=== PATIENT | male | born 1950 | race Caucasian/White ===

== ENCOUNTER → 2019-05-07 | Outpatient (CLI) | payer MEDICARE ==
[~2019-05-07] MED LIST: ALBU90OI INH; DIPH50 PO; METPRE4DP PO; Pepcid20 MG PO; Prednisone20 MG PO
[2019-05-07 13:59] LABS: Anion Gap 6 mmol/L (6-16); Blood Urea Nitrogen 11 mg/dL (8-24); Bun/Creatinine Ratio 15.3 (12.0-20.0); CO2, Blood 31 mmol/L (21-32); Calcium, Blood 8.7 mg/dL (8.5-10.1); Chloride, Blood 105 mmol/L (98-108); Creatinine, Blood 0.72 mg/dL (0.60-1.20); Glomerular Filtration Rate >60 (60-); Glucose, Blood 94 mg/dL (70-99); Potassium, Blood 4.3 mmol/L (3.5-5.5); Sodium, Blood 142 mmol/L (136-145)
== END | disposition home or self-care (01) ==
LOC: LAB SHORT 13:52 → LAB EV 13:52
PROVIDERS: Physician Assistant Surgical
DX: I10 Essential (primary) hypertension (principal)
CPT/HCPCS: 80048

== ENCOUNTER 2019-08-23 02:43 | Emergency (ER) | payer MEDICARE ==
[~2019-08-23] VITALS: Ht 172.7 cm; Wt 79.4 kg
[2019-08-23] MEDS ORDERED: Lisinopril2.5 MG (02:55)
[2019-08-23] MEDS ORDERED: LEVSOD137 (02:56)
[2019-08-23] MEDS ORDERED: AMIT10 (02:56)
[2019-08-23] MEDS ORDERED: CHLO25B (02:56)
[2019-08-23 03:06] LABS: BASOPHILS ABSOLUTE AUTO 0.07 K/mm3 (0.00-0.23); BASOPHILS PERCENT AUTO 1 % (0-2); EOSINOPHILS ABSOLUTE AUTO 0.46 K/mm3 (0.00-0.68); EOSINOPHILS PERCENT AUTO 6 % (0-6); Hematocrit 42.6 % (37.0-53.0); IMMATURE GRAN ABSOLUTE AUTO 0.01 K/mm3 (0.00-0.10); IMMATURE GRAN PERCENT AUTO 0 % (0-1); LYMPHOCYTES ABSOLUTE AUTO 2.83 K/mm3 (0.84-5.20); LYMPHOCYTES PERCENT AUTO 39 % (21-46); MONOCYTES ABSOLUTE AUTO 0.85 K/mm3 (0.16-1.47); MONOCYTES PERCENT AUTO 12 % (4-13); Mean Corpuscular HGB 32.8 pg (26.0-34.0); Mean Corpuscular HGB Conc 32.9 g/dL (31.5-36.5); Mean Corpuscular Volume 100 fL (80-100); NEUTROPHILS ABSOLUTE AUTO 3.03 K/mm3 (1.96-9.15); NEUTROPHILS PERCENT AUTO 42 % (41-73); Platelet Count 247 K/mm3 (150-400); RDW Coefficient Variation 12.5 % (11.7-14.2); RDW Standard Deviation 45.5 fL (35.1-46.3); Red Blood Cell Count 4.27 M/mm3 (4.30-5.90); White Blood Cell Count 7.25 K/mm3 (4.00-11.30)
[2019-08-23 03:24] LABS: Alanine Aminotransfer (ALT/SGP 25 U/L (12-78); Albumin/Globulin Ratio 0.8 (0.8-1.8); Alk Phos 76 U/L (50-136); Anion Gap 6 mmol/L (6-16); Aspartate Aminotrans (AST/SGOT 36 U/L (12-37); Bilirubin, Total 0.2 mg/dL (0.1-1.0); Blood Urea Nitrogen 8 mg/dL (8-24); Bun/Creatinine Ratio 10.5 (12.0-20.0); CO2, Blood 29 mmol/L (21-32); Calcium, Blood 8.4 mg/dL (8.5-10.1); Chloride, Blood 104 mmol/L (98-108); Creatinine, Blood 0.76 mg/dL (0.60-1.20); Ethanol (Alcohol), Blood, Med 98 mg/dL; Glomerular Filtration Rate >60 (60-); Glucose, Blood 101 mg/dL (70-99); Potassium, Blood 3.3 mmol/L (3.5-5.5); Salicylate <1.7 mg/dL (2.8-20.0); Sodium, Blood 139 mmol/L (136-145)
[2019-08-23 03:29] LABS: Acetaminophen, Random <2.0 ug/mL (10.0-30.0)
[2019-08-23 04:33] LABS: Source, Urine Clean Catch
[2019-08-23 04:40] LABS: Bilirubin, Urine Neg (Neg); Blood, Urine Neg (Neg); Glucose Qualitative, Urine Neg (Neg); Ketones, Urine Neg (Neg); Leukocyte Esterase, Urine Neg (Neg); Nitrite, Urine Neg (Neg); Protein, Urine Neg (Neg); Urobilinogen, Urine NORM (Normal)
[2019-08-23 04:43] LABS: Appearance, Urine Clear (Clear); Color, Urine Yellow (P-Yellow)
[2019-08-23 04:52] LABS: U Amphetamine Screen Not Detected; U Barbituate Screen Not Detected; U Benzodiazapine Screen Not Detected; U Buprenorphine Screen Not Detected; U Cannabinoids Screen Not Detected; U Cocaine Screen Not Detected; U Methadone Screen Not Detected; U Methamphetamine Screen Not Detected; U Opiates Screen Not Detected; U Oxycodone Screen Not Detected; U Phencyclidine Screen Not Detected; U Propoxyphene Screen Not Detected
== END 2019-08-23 05:04 | disposition home or self-care (01) ==
LOC: ER 02:43
PROVIDERS: Emergency Medicine
DX: S09.90XA Unspecified injury of head, initial encounter (principal); F10.129 Alcohol abuse with intoxication, unspecified; F17.210 Nicotine dependence, cigarettes, uncomplicated; Z79.899 Other long term (current) drug therapy; Y90.0 Blood alcohol level of less than 20 mg/100 ml; W19.XXXA Unspecified fall, initial encounter
CPT/HCPCS: 70450; 80053; 81003; 85025; 93005; 93010; 99284-25; G0480

== ENCOUNTER 2020-05-27 14:37 | Inpatient (IN) | payer MEDICARE ==
[~2020-05-27] VITALS: Ht 175.3 cm; Wt 86.4 kg
[~2020-05-27 14:37] MED LIST changes: +AMIT10; +CHLO25B; +LEVSOD137; +Lisinopril2.5 MG
[2020-05-27 15:17] LABS: BASOPHILS ABSOLUTE AUTO 0.04 K/mm3 (0.00-0.23); BASOPHILS PERCENT AUTO 1 % (0-2); EOSINOPHILS ABSOLUTE AUTO 0.05 K/mm3 (0.00-0.68); EOSINOPHILS PERCENT AUTO 1 % (0-6); Hematocrit 36.5 % (37.0-53.0); Hemoglobin 13.2 g/dL (13.5-17.5); IMMATURE GRAN ABSOLUTE AUTO 0.03 K/mm3 (0.00-0.10); IMMATURE GRAN PERCENT AUTO 0 % (0-1); LYMPHOCYTES ABSOLUTE AUTO 1.74 K/mm3 (0.84-5.20); LYMPHOCYTES PERCENT AUTO 25 % (21-46); MONOCYTES PERCENT AUTO 12 % (4-13); Mean Corpuscular HGB 33.8 pg (26.0-34.0); Mean Corpuscular HGB Conc 36.2 g/dL (31.5-36.5); Mean Corpuscular Volume 93 fL (80-100); Mean Platelet Volume 8.8 fL (9.1-12.4); NEUTROPHILS ABSOLUTE AUTO 4.25 K/mm3 (1.96-9.15); NEUTROPHILS PERCENT AUTO 62 % (41-73); Platelet Count 148 K/mm3 (150-400); RDW Coefficient Variation 11.5 % (11.7-14.2); RDW Standard Deviation 39.4 fL (35.1-46.3); Red Blood Cell Count 3.91 M/mm3 (4.30-5.90); White Blood Cell Count 6.91 K/mm3 (4.00-11.30)
[2020-05-27 15:38] LABS: Alanine Aminotransfer (ALT/SGP 127 U/L (12-78); Albumin, Blood 2.9 g/dL (3.4-5.0); Albumin/Globulin Ratio 0.7 (0.8-1.8); Alk Phos 127 U/L (50-136); Anion Gap 9 mmol/L (6-16); Aspartate Aminotrans (AST/SGOT 316 U/L (12-37); Bilirubin, Total 1.4 mg/dL (0.1-1.0); Blood Urea Nitrogen 5 mg/dL (8-24); Bun/Creatinine Ratio 7.8 (12.0-20.0); CO2, Blood 35 mmol/L (21-32); Chloride, Blood 84 mmol/L (98-108); Creatinine, Blood 0.64 mg/dL (0.60-1.20); Globulin, Blood 3.9 g/dL (2.2-4.0); Glomerular Filtration Rate >60 (60-); Glucose, Blood 134 mg/dL (70-99); Potassium, Blood 2.6 mmol/L (3.5-5.5); Sodium, Blood 128 mmol/L (136-145); Total Protein, Blood 6.8 g/dL (6.4-8.2); Troponin I 0.085 ng/mL (0.000-0.040)
[2020-05-27 15:39] LABS: Salicylate <1.7 mg/dL (2.8-20.0)
[2020-05-27 15:40] LABS: Acetaminophen, Random <2.0 ug/mL (10.0-30.0); Ethanol (Alcohol), Blood, Med 328 mg/dL
[2020-05-27] MEDS ORDERED: TIOT18 INH (18:50)
[2020-05-27] MEDS ORDERED: LISI20 PO (18:50)
[2020-05-27] MEDS ORDERED: SYNTHROID88 MCG PO (18:50)
[2020-05-27] MEDS ORDERED: CHLO25B PO (18:50)
[2020-05-27 20:21] LABS: Source, Urine Clean Catch
[2020-05-27 20:24] LABS: Appearance, Urine Clear (Clear); Bilirubin, Urine Neg (Neg); Blood, Urine 1+ (Neg); Color, Urine Yellow (P-Yellow); Glucose Qualitative, Urine Neg (Neg); Ketones, Urine 1+ (Neg); Leukocyte Esterase, Urine Neg (Neg); Nitrite, Urine Neg (Neg); Protein, Urine Neg (Neg); Specific Gravity, Urine 1.005 (1.003-1.022); Urobilinogen, Urine NORM (Normal)
[2020-05-27 20:34] LABS: U Amphetamine Screen Not Detected; U Barbituate Screen Not Detected; U Benzodiazapine Screen Not Detected; U Buprenorphine Screen Not Detected; U Cannabinoids Screen Not Detected; U Cocaine Screen Not Detected; U Methadone Screen Not Detected; U Methamphetamine Screen Not Detected; U Opiates Screen Not Detected; U Oxycodone Screen Not Detected; U Phencyclidine Screen Not Detected; U Propoxyphene Screen Not Detected
[2020-05-27 20:49] LABS: Bacteria Not Seen /hpf; Red Blood Cells, Urine Rare /hpf (0-2); Squamous Epithelial Cells Not Seen /hpf (Few); White Blood Cells, Urine Rare /hpf (0-5)
--- NOTE | 2020-05-27 22:16 | NUR ---
2210 PT ADMITTED TO ROOM 328 PER CART FROM ER; REPORT RECEIVED FROM TAVO RN, ER NURSE; PT ALERT AND ORIENTED X 4; COOPERATIVE.
[2020-05-27 23:54] LABS: Troponin I 0.091 ng/mL (0.000-0.040)
[2020-05-28 00:07] LABS: Creatine Kinase MB Index 2.3 (0.0-4.0)
--- NOTE | 2020-05-28 03:43 | NUR ---
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
[2020-05-28 07:36] LABS: BASOPHILS ABSOLUTE AUTO 0.03 K/mm3 (0.00-0.23); BASOPHILS PERCENT AUTO 0 % (0-2); EOSINOPHILS ABSOLUTE AUTO 0.01 K/mm3 (0.00-0.68); EOSINOPHILS PERCENT AUTO 0 % (0-6); Hematocrit 34.4 % (37.0-53.0); Hemoglobin 12.3 g/dL (13.5-17.5); IMMATURE GRAN ABSOLUTE AUTO 0.03 K/mm3 (0.00-0.10); IMMATURE GRAN PERCENT AUTO 0 % (0-1); LYMPHOCYTES ABSOLUTE AUTO 1.06 K/mm3 (0.84-5.20); LYMPHOCYTES PERCENT AUTO 11 % (21-46); MONOCYTES ABSOLUTE AUTO 0.78 K/mm3 (0.16-1.47); MONOCYTES PERCENT AUTO 8 % (4-13); Mean Corpuscular HGB 34.5 pg (26.0-34.0); Mean Corpuscular HGB Conc 35.8 g/dL (31.5-36.5); Mean Corpuscular Volume 96 fL (80-100); Mean Platelet Volume 8.9 fL (9.1-12.4); NEUTROPHILS ABSOLUTE AUTO 7.91 K/mm3 (1.96-9.15); NEUTROPHILS PERCENT AUTO 81 % (41-73); Platelet Count 128 K/mm3 (150-400); RDW Coefficient Variation 11.7 % (11.7-14.2); RDW Standard Deviation 41.1 fL (35.1-46.3); Red Blood Cell Count 3.57 M/mm3 (4.30-5.90); White Blood Cell Count 9.82 K/mm3 (4.00-11.30)
[2020-05-28 07:55] LABS: Alanine Aminotransfer (ALT/SGP 111 U/L (12-78); Albumin, Blood 2.7 g/dL (3.4-5.0); Albumin/Globulin Ratio 0.8 (0.8-1.8); Alk Phos 123 U/L (50-136); Anion Gap 8 mmol/L (6-16); Aspartate Aminotrans (AST/SGOT 276 U/L (12-37); Bilirubin, Total 2.2 mg/dL (0.1-1.0); Blood Urea Nitrogen 6 mg/dL (8-24); Bun/Creatinine Ratio 9.2 (12.0-20.0); CO2, Blood 31 mmol/L (21-32); CPK Creatine Kinase 295 U/L (39-308); Calcium, Blood 7.7 mg/dL (8.5-10.1); Chloride, Blood 91 mmol/L (98-108); Creatinine, Blood 0.65 mg/dL (0.60-1.20); Globulin, Blood 3.5 g/dL (2.2-4.0); Glomerular Filtration Rate >60 (60-); Glucose, Blood 142 mg/dL (70-99); Potassium, Blood 3.2 mmol/L (3.5-5.5); Sodium, Blood 130 mmol/L (136-145); Total Protein, Blood 6.2 g/dL (6.4-8.2); Troponin I 0.087 ng/mL (0.000-0.040)
--- NOTE | 2020-05-28 10:17 | NUR ---
Echocardiogram completed.
--- NOTE | 2020-05-28 12:33 | NUR ---
L KNEE PAIN PT C/O L KNEE PAIN AFTER TOILETING EARLIER IN SHIFT. CALLED DR. CONTRERAS ABOUT PT PAIN LEVEL. PT STATES 10/10 LEVEL. ORDERED IBUPROPHEN TO START FOR PAIN MANAGEMENT. MED ADMINISTERED. WILL CONTINUE TO MONITOR.
--- NOTE | 2020-05-28 13:02 | NUR ---
L KNEE PAIN PT CONTINUES TO C/O L KNEE PAIN. DR. MORRISON NOTIFIED THAT IBUPROPHEN ALREADY HAS BEEN GIVEN. ORDERED XR OF L KNEE. AND TO APPLY ICE TO AREA. WILL CONTINUE TO MONITOR.
--- NOTE | 2020-05-28 17:56 | NUR ---
SHIFT SUMMARY PT HAD XR OF L KNEE COMPLETED TODAY DUE TO INCREASED PAIN T/O SHIFT. OXYCODONE STARTED AND LIDOCAINE PATCHES APPLIED TO KNEE WITH LITTLE RELIEF. L KNEE ELEVATED ON PILLOWS. TREMORS IMPROVED TREMENDOUSLY FROM THIS AM. LIBRIUM GIVEN ONCE THIS SHIFT. NO OTHER CHANGES IN ASSESSMENT AT THIS TIME. VS REVIEWED. WILL CONTINUE TO MONITOR UNTIL TURNOVER IS COMPLETE
--- NOTE | 2020-05-28 19:15 | NUR ---
ASSUMED CARE RECEIVED REPORT FROM VERONICA RUBY. ASSUMED CARE OF PT. RESTING COMFORTABLY, NO S/S ACUTE DISTRESS NOTED, RESPS E/U. REPORTING LT KNEE PAIN /, UNRELIEVED BY ICE OR HEAT. WILL MEDICATE ORDERED PER EMAR. PT DENIES FURTHER NEEDS AT THIS TIME. CALL LIGHT, POSSESSIONS IN REACH, BED IN LOW POSITION WITH ALARMS ON. WCTM.
--- NOTE | 2020-05-29 05:23 | NUR ---
THIS RN IN ROOM ADMINISTERING 0600 MEDS. PT HAD VISIBLE HICCUPS AND TREMORS, APPEARED INCREASINGLY ANXIOUS. MEDICATED PER EMAR. CONTINUE TO MONITOR.
[2020-05-29 05:48] LABS: BASOPHILS ABSOLUTE AUTO 0.04 K/mm3 (0.00-0.23); BASOPHILS PERCENT AUTO 1 % (0-2); EOSINOPHILS ABSOLUTE AUTO 0.03 K/mm3 (0.00-0.68); EOSINOPHILS PERCENT AUTO 0 % (0-6); Hematocrit 35.2 % (37.0-53.0); Hemoglobin 11.9 g/dL (13.5-17.5); IMMATURE GRAN ABSOLUTE AUTO 0.05 K/mm3 (0.00-0.10); IMMATURE GRAN PERCENT AUTO 1 % (0-1); LYMPHOCYTES ABSOLUTE AUTO 1.06 K/mm3 (0.84-5.20); LYMPHOCYTES PERCENT AUTO 13 % (21-46); MONOCYTES ABSOLUTE AUTO 0.64 K/mm3 (0.16-1.47); MONOCYTES PERCENT AUTO 8 % (4-13); Mean Corpuscular HGB 33.4 pg (26.0-34.0); Mean Corpuscular HGB Conc 33.8 g/dL (31.5-36.5); Mean Corpuscular Volume 99 fL (80-100); Mean Platelet Volume 9.5 fL (9.1-12.4); NEUTROPHILS ABSOLUTE AUTO 6.16 K/mm3 (1.96-9.15); NEUTROPHILS PERCENT AUTO 77 % (41-73); Platelet Count 136 K/mm3 (150-400); RDW Coefficient Variation 11.8 % (11.7-14.2); RDW Standard Deviation 43.1 fL (35.1-46.3); Red Blood Cell Count 3.56 M/mm3 (4.30-5.90); White Blood Cell Count 7.98 K/mm3 (4.00-11.30)
[2020-05-29 06:41] LABS: Alanine Aminotransfer (ALT/SGP 84 U/L (12-78); Albumin, Blood 2.4 g/dL (3.4-5.0); Albumin/Globulin Ratio 0.7 (0.8-1.8); Alk Phos 107 U/L (50-136); Anion Gap 5 mmol/L (6-16); Aspartate Aminotrans (AST/SGOT 181 U/L (12-37); Bilirubin, Total 3.7 mg/dL (0.1-1.0); Blood Urea Nitrogen 8 mg/dL (8-24); Bun/Creatinine Ratio 13.5 (12.0-20.0); CO2, Blood 29 mmol/L (21-32); Calcium, Blood 7.6 mg/dL (8.5-10.1); Chloride, Blood 97 mmol/L (98-108); Creatinine, Blood 0.59 mg/dL (0.60-1.20); Globulin, Blood 3.5 g/dL (2.2-4.0); Glomerular Filtration Rate >60 (60-); Glucose, Blood 109 mg/dL (70-99); Magnesium, Blood 1.8 mg/dL (1.6-2.4); Potassium, Blood 4.1 mmol/L (3.5-5.5); Sodium, Blood 131 mmol/L (136-145); Total Protein, Blood 5.9 g/dL (6.4-8.2)
--- NOTE | 2020-05-29 07:20 | NUR ---
SHIFT SUMMARY PT RESTING COMFORTABLY, NO S/S ACUTE DISTRESS NOTED, HICCUPS AND TREMORS IMPROVED, CIWAS STABLE. PT REPORTS IMPROVED LT KNEE PAIN THIS AM, NO C/O DISCOMFORT AT THIS TIME. VS REVIEWED, WNL. PT SLEPT ON AND OFF T/O NIGHT. DENIES NEEDS AT THIS TIME. CALL LIGHT, POSSESSIONS IN REACH, BED IN LOW POSITION WITH ALARMS ON. REPORT GIVEN TO VERONICA DONIS.
--- NOTE | 2020-05-29 09:45 | NUR ---
PT A/O PLEASANT QUIET TALKATIVE. DENIES PAIN AT THIS TIME. WHEN STANDS STATES LEFT KNEE WAS HURTING, NOT AT THIS MOMENT. DENIES S/S ETOH WITHDRAWL. D/C CWYohana. ONLY LIGHT BARELY NOTICABLE TREMORS. DOES REMAIN QUITE WEAK, UNABLE TO WALK AT THIS TIME. 2 MAX ASST TO BSC. H/R REG, NO MURMER NOTED. PER TELE TACH W/ PVC'S AT 106. LUNGS CLEAR, RESP EASY, UNLABORED. ON R.A. BT X4, LAST BM STATES YEST. LOOSE BUT NOT DIARRHEA. VOIDS URINAL. BED IN LOW POSITION, ACLL LITE IN REACH, BED ALARM ON FOR SAFETY
[2020-05-29] MEDS ORDERED: LIDOCAINE1 EAC1 TOP (14:48)
[2020-05-29] MEDS ORDERED: TRAZ50 PO (14:48)
[2020-05-29] MEDS ORDERED: MELA3 PO (14:48)
--- NOTE | 2020-05-29 15:10 | NUR ---
1510 TELE CALLED. H/R JUST JUMPED TO 200. CHECKED PT. HE RESTING EYES CLOSED IN BED. WOKE HIM. ASKED IF HE FELT OKAY. STATES FEELS OKAY, PLANNING A NAP AT THIS TIME. PULSES VERY FAINT IN EITHER ARM. RAPID, BUT CANNOT DISCERN RATES. NEW V/S 105/66. PER TELE RATE 210. CALLED CHARGE TO SEE PT ALSO. CALLED DR DE LA TORRE. ORDERS STAT EKG AND 5 MG LOPRESSOR. IV X1. PT STATES FEELS OKAY, BUT WEAK IS ALL.
--- NOTE | 2020-05-29 16:52 | NUR ---
1545 EKG READ BACK TO DR BARLOW. GAVE LOPRESSOR. NEW BP 83/48. H/R DROPPED TO 180-190. CALLED DR CONTRERAS, AND GAGANDEEP RELATIONS MANAGER. MOVING TO [facility]. REPORT CALLED TO PENNY DEMARCO.
--- NOTE | 2020-05-29 18:21 | NUR ---
PATIENT ARRIVED TO PCU HAVING CONVERTED BACK TO SINUES RHYTHYM, PATIENT DENIED CHEST PAIN/PRESSURE, BP 119/88 ON ARRIVAL. AT ROUGHLY 1700 PATIENT CONVERTED BACK TO SVT IN THE 200S, PATIENT DENIES CHEST PAIN, NOTED SOB ON OBSERVATION, EKG DONE, DR. CONTRERAS NOTIFIED ORDERS FOR PO METOPROLOL GIVEN. PATIENT MAINTAINING IN 200S, RUTHIE MARTIN CALLED DR. CONTRERAS AND RECIEVED ORDERS FOR IV METOPROLOL PUSH. PUSH GIVEN PER EMAR, PATIENT HR DECREASED TO 180S. BP MONITORED, NO HYPOTENSION NOTED. PATIENT ENCOURAGED TO COUGH, CONVERTED WITH BIG COUGH TO SINUS RHYTHYM AND NOW IN SR 80S-90S. DISCHARGE DELAYED, PLAN IS FOR PATIENT TO STAY IN PCU OVERNIGHT WITH CARDIOLOGY TO SEE IN MORNING.
--- NOTE | 2020-05-29 19:54 | NUR ---
ASSUMED CARE RECEIVED BEDSIDE REPORT FROM VERONICA FRANCIS; PT A&O X 3; WATCHING TV; DENIES CHEST PAIN; VSS; NO DISTRESS NOTED; CALL LIGHT IN REACH; BED IN LOWEST POSITION.
--- NOTE | 2020-05-29 20:27 | NUR ---
UPDATE NOTIFIED BY IMAGING SYSTEM ADMINISTRATOR OF PT IN SVT W/ HR OF 180-190; PT ASSYMPTOMATIC AND STATED HE "FEEL FINE"; SUSPENDER CUTTER TO ROOM TO ASSIST PT W/ BLOWING ON SYRINGE W/ NO CHANGE TO RATE; NOTIFIED; NEW ORDER GIVEN FOR ADENOSINE 6MG FOLLOWED BY 12 IF NO CHANGE IN RATE/RHYTHM; ADMINISTER PO METOPROLO TO FURTHER ASSESS FOR IMPROVEMENT; RN IN ROOM TO MONITOR PT
--- NOTE | 2020-05-29 21:10 | NUR ---
UPDATE CRASH CART IN ROOM AND PT CONNECTED; CLINICAL ACADEMIC ALLERGIST NOTIFIED; FIRE PREVENTION ENGINEER GABRIEL BLUNT RN AND VERONICA FERRARA AT BEDSIDE TO ASSIST; 6MG ADENOSINE PUSH GIVEN; DURATION OF 5 MINUTES WAITED, NO CHANGE IN CONDITION; 12MG ADENOSINE PUSH GIVEN; PT CONVERTED TO NSR W/ HR 80'S -90'S; PT STATES THE MEDICINE "DOES NOT SEEM TO CHANGE ANYTHING", DENIES CHEST PAIN, OR SYMPTOMS; CONITNUE TO MONITOR CLOSELY;
--- NOTE | 2020-05-30 06:11 | NUR ---
SHIFT SUMMARY PT A&O X 2-3; DOES NOT TRACK CONVERSATION AT TIMES; VSS; NSR NOTED ON TELE REMAINDER OF SHIFT W/ HR 80-90'S; O2 SATS >93 ON RA; ASSISTANCE NEEDED W/ URINAL; INCONTINENT AT TIMES W/ ATTENDS IN PLACE; PT SLEPT ON AND OFF IN BETWEEN INTERVENTIONS; NO DISTRESS NOTED; DENIES NEEDS AT THIS TIME; CALL LIGHT IN REACH; BED IN LOWEST POSITION; WILL CONTINUE TO MONITOR CLOSELY UNTIL HAND OFF TO DAY SHIFT RN.
[2020-05-30 07:23] LABS: BASOPHILS ABSOLUTE AUTO 0.03 K/mm3 (0.00-0.23); BASOPHILS PERCENT AUTO 0 % (0-2); EOSINOPHILS ABSOLUTE AUTO 0.08 K/mm3 (0.00-0.68); EOSINOPHILS PERCENT AUTO 1 % (0-6); Hematocrit 32.7 % (37.0-53.0); Hemoglobin 11.1 g/dL (13.5-17.5); IMMATURE GRAN ABSOLUTE AUTO 0.08 K/mm3 (0.00-0.10); IMMATURE GRAN PERCENT AUTO 1 % (0-1); LYMPHOCYTES ABSOLUTE AUTO 1.67 K/mm3 (0.84-5.20); LYMPHOCYTES PERCENT AUTO 18 % (21-46); MONOCYTES ABSOLUTE AUTO 0.89 K/mm3 (0.16-1.47); MONOCYTES PERCENT AUTO 10 % (4-13); Mean Corpuscular HGB 34.6 pg (26.0-34.0); Mean Corpuscular HGB Conc 33.9 g/dL (31.5-36.5); Mean Corpuscular Volume 102 fL (80-100); Mean Platelet Volume 9.9 fL (9.1-12.4); NEUTROPHILS ABSOLUTE AUTO 6.53 K/mm3 (1.96-9.15); NEUTROPHILS PERCENT AUTO 70 % (41-73); Platelet Count 158 K/mm3 (150-400); RDW Coefficient Variation 12.3 % (11.7-14.2); RDW Standard Deviation 46.4 fL (35.1-46.3); Red Blood Cell Count 3.21 M/mm3 (4.30-5.90); White Blood Cell Count 9.28 K/mm3 (4.00-11.30)
[2020-05-30 07:39] LABS: Alanine Aminotransfer (ALT/SGP 61 U/L (12-78); Albumin, Blood 2.2 g/dL (3.4-5.0); Albumin/Globulin Ratio 0.6 (0.8-1.8); Alk Phos 92 U/L (50-136); Anion Gap 5 mmol/L (6-16); Aspartate Aminotrans (AST/SGOT 108 U/L (12-37); Bilirubin, Direct 1.5 mg/dL (0.0-0.3); Bilirubin, Indirect 1.2 mg/dL (0.1-0.7); Bilirubin, Total 2.7 mg/dL (0.1-1.0); Blood Urea Nitrogen 15 mg/dL (8-24); Bun/Creatinine Ratio 19.5 (12.0-20.0); CO2, Blood 28 mmol/L (21-32); Calcium, Blood 7.7 mg/dL (8.5-10.1); Chloride, Blood 99 mmol/L (98-108); Creatinine, Blood 0.77 mg/dL (0.60-1.20); Globulin, Blood 3.6 g/dL (2.2-4.0); Glomerular Filtration Rate >60 (60-); Glucose, Blood 98 mg/dL (70-99); Potassium, Blood 4.1 mmol/L (3.5-5.5); Sodium, Blood 132 mmol/L (136-145); Total Protein, Blood 5.8 g/dL (6.4-8.2)
[2020-05-30 09:10] LABS: Magnesium, Blood 1.5 mg/dL (1.6-2.4); Troponin I 0.186 ng/mL (0.000-0.040)
--- NOTE | 2020-05-30 18:13 | NUR ---
THIS MORNING PATIENT WENT INTO SVT, ADENOSINE PUSH GIVEN PER EMAR, PATIENT CONVERTED BACK TO SINUS RHYTHYM AND MAINTAINED IN NSR REST OF SHIFT 80S-90S. PATIENT APPEARED SHORT OF BREATH DURING SVT, NO OTHER SYMPTOMS NOTED. PATIENT STANDBY ASSIST TO BEDSIDE, PATIENT WEAK AND REQUIRES ASSIST IN STANDING FOR TRANSFER. PATIENT SEEN BY CARDIOLOGY TODAY, LONG ACTING METOPROLOL STARTED. PATIENT ENDORSES POOR APPETITE, OTHERWISE NO COMPLAINTS. PATIENT'S VSS REST OF SHIFT, NO SIGNS OF ACUTE DISTRESS, ALERT AND ORIENTED, CONCRETE THINKING PRESENT, FOLLOWS COMMANDS.
--- NOTE | 2020-05-30 23:38 | NUR ---
PATIENT IS ALERT AND ORIENTED. COOPERATIVE WITH CARE. PATIENT HAS WOUND ON LEFT WRIST THAT HE STATES HAPPENED AT HOME, CHANGED DRESSING, WOUND APPEARS CLEAN AND IS NOW DRY. HEELS PLACED IN PROTECTIVE CUSHION. PATIENT CALLS APPROPRIATELY, USES URINAL. 02 SATS >90% ON RA, PATIENT DENIES SOB, AND HAS A DRY COUGH. VSS. CALL LIGHT IN REACH.
[2020-05-31 03:48] LABS: BASOPHILS ABSOLUTE AUTO 0.04 K/mm3 (0.00-0.23); BASOPHILS PERCENT AUTO 1 % (0-2); EOSINOPHILS ABSOLUTE AUTO 0.15 K/mm3 (0.00-0.68); EOSINOPHILS PERCENT AUTO 2 % (0-6); Hematocrit 31.1 % (37.0-53.0); Hemoglobin 10.6 g/dL (13.5-17.5); IMMATURE GRAN ABSOLUTE AUTO 0.13 K/mm3 (0.00-0.10); IMMATURE GRAN PERCENT AUTO 2 % (0-1); LYMPHOCYTES ABSOLUTE AUTO 1.52 K/mm3 (0.84-5.20); LYMPHOCYTES PERCENT AUTO 19 % (21-46); MONOCYTES ABSOLUTE AUTO 0.77 K/mm3 (0.16-1.47); MONOCYTES PERCENT AUTO 9 % (4-13); Mean Corpuscular HGB 34.8 pg (26.0-34.0); Mean Corpuscular HGB Conc 34.1 g/dL (31.5-36.5); Mean Corpuscular Volume 102 fL (80-100); Mean Platelet Volume 9.4 fL (9.1-12.4); NEUTROPHILS ABSOLUTE AUTO 5.61 K/mm3 (1.96-9.15); NEUTROPHILS PERCENT AUTO 68 % (41-73); Platelet Count 178 K/mm3 (150-400); RDW Coefficient Variation 12.4 % (11.7-14.2); RDW Standard Deviation 46.4 fL (35.1-46.3); Red Blood Cell Count 3.05 M/mm3 (4.30-5.90); White Blood Cell Count 8.22 K/mm3 (4.00-11.30)
[2020-05-31 04:15] LABS: Anion Gap 6 mmol/L (6-16); Blood Urea Nitrogen 18 mg/dL (8-24); Bun/Creatinine Ratio 25.4 (12.0-20.0); CO2, Blood 27 mmol/L (21-32); Calcium, Blood 7.9 mg/dL (8.5-10.1); Chloride, Blood 101 mmol/L (98-108); Creatinine, Blood 0.71 mg/dL (0.60-1.20); Glomerular Filtration Rate >60 (60-); Glucose, Blood 108 mg/dL (70-99); Magnesium, Blood 1.9 mg/dL (1.6-2.4); Potassium, Blood 3.6 mmol/L (3.5-5.5); Sodium, Blood 134 mmol/L (136-145)
[2020-05-31 07:10] LABS: HBSAG SCREEN Negative (Negative); HEP A AB, IGM Negative (Negative); HEP B CORE AB, IGM Negative (Negative); HEP C VIRUS AB >11.0 (0.0-0.9)
--- NOTE | 2020-05-31 07:37 | NUR ---
SUMMARY PATIENT SLEPT MOST THE NIGHT, OCCASIONAL WOKE UP AND WATCHED TV. USED URINAL APPROPRIATELY. VSS, NO ACUTE CHANGES. CALL LIGHT IN REACH.
--- NOTE | 2020-05-31 16:45 | NUR ---
PT SUMMARY: NO EPISODES OF SVT TODAY VITALS HRR REMAINED SINUS TACH'S UP TO 110'S WITH EXERTION, BP SYSTOLIC 120'S. SATS ABOVE 90% ON RA. AFEBRILE. PT WAS ABLE TO WORL WITH PT/OT TODAY STILL FEELING UNSTEADY AND WEAK, WAS ABLE TO AMBULATE TO THE BATHROOM AND BACK IN BED, PT ALSO C/O LEFT LEG PAIN AFTER AMBULATING WAS GIVEN OXYCODONE 5MG AND WAS EFFECTIVE. PT PLAN TO POSSIBLY DC TO REHAB, WAS WILLING TO QUIT ALCOHOL IF HE IS TO GET SOME HELP/REHAB. NO OTHER ISSUES COMPLAINED FOR THE SHIFT, FAMILY MEMBER IN THE ROOM TO VISIT REQUESTED AND WAS ABLE TO TALK TO DR PAGE REGARDING PT'S STATUS. PT DENIES ANY CHEST PAIN/DIZZINESS FOR THE SHIFT, IN BED OF THIS TIME RESTING, CALL LIGHTS IN REACH WILL MONITOR
--- NOTE | 2020-05-31 23:44 | NUR ---
PATIENT IS ALERT, ORIENTED, AND COOPERATIVE WITH CARE. PATIENT COMPLAINED OF LEFT ANKLE PAIN, SLIGHT BRUISING NOTED, ICE PACK APPLIED, WILL REASSES. REPOSITIONED, CHANGED PATIENT BRIEF, AND CHANGED PATIENTS BED SHEETS. PATIENT WENT INTO SVT 180s-190s @2140, SHAILA MARTIN HAD PATIENT BLOW INTO SYRINGE AND PATIENT CONVERTED BACK TO NSR @80s-90s. 02 SATS >90% ON RA. VS NOW STABLE. CALL LIGHT IN REACH.
[2020-06-01 03:31] LABS: BASOPHILS ABSOLUTE AUTO 0.07 K/mm3 (0.00-0.23); BASOPHILS PERCENT AUTO 1 % (0-2); EOSINOPHILS ABSOLUTE AUTO 0.19 K/mm3 (0.00-0.68); EOSINOPHILS PERCENT AUTO 2 % (0-6); Hematocrit 29.2 % (37.0-53.0); Hemoglobin 9.7 g/dL (13.5-17.5); IMMATURE GRAN PERCENT AUTO 2 % (0-1); LYMPHOCYTES ABSOLUTE AUTO 1.87 K/mm3 (0.84-5.20); LYMPHOCYTES PERCENT AUTO 21 % (21-46); MONOCYTES ABSOLUTE AUTO 1.12 K/mm3 (0.16-1.47); MONOCYTES PERCENT AUTO 12 % (4-13); Mean Corpuscular HGB 34.4 pg (26.0-34.0); Mean Corpuscular HGB Conc 33.2 g/dL (31.5-36.5); Mean Corpuscular Volume 104 fL (80-100); Mean Platelet Volume 9.3 fL (9.1-12.4); NEUTROPHILS ABSOLUTE AUTO 5.65 K/mm3 (1.96-9.15); NEUTROPHILS PERCENT AUTO 62 % (41-73); Platelet Count 195 K/mm3 (150-400); RDW Coefficient Variation 12.8 % (11.7-14.2); RDW Standard Deviation 46.6 fL (35.1-46.3); Red Blood Cell Count 2.82 M/mm3 (4.30-5.90)
[2020-06-01 03:49] LABS: Alanine Aminotransfer (ALT/SGP 53 U/L (12-78); Albumin, Blood 1.9 g/dL (3.4-5.0); Albumin/Globulin Ratio 0.5 (0.8-1.8); Alk Phos 78 U/L (50-136); Anion Gap 5 mmol/L (6-16); Aspartate Aminotrans (AST/SGOT 71 U/L (12-37); Bilirubin, Total 1.3 mg/dL (0.1-1.0); Blood Urea Nitrogen 25 mg/dL (8-24); Bun/Creatinine Ratio 36.3 (12.0-20.0); CO2, Blood 26 mmol/L (21-32); Chloride, Blood 101 mmol/L (98-108); Creatinine, Blood 0.69 mg/dL (0.60-1.20); Globulin, Blood 3.5 g/dL (2.2-4.0); Glomerular Filtration Rate >60 (60-); Glucose, Blood 109 mg/dL (70-99); Magnesium, Blood 1.7 mg/dL (1.6-2.4); Potassium, Blood 4.3 mmol/L (3.5-5.5); Sodium, Blood 132 mmol/L (136-145); Total Protein, Blood 5.4 g/dL (6.4-8.2)
--- NOTE | 2020-06-01 06:47 | NUR ---
SUMMARY PATIENT SLEPT MOST THE NIGHT. NO OTHER EPISODES OF SVT. PATIENT STATES HE IS COMFORTABLE. VSS, NO ACUTE CHANGES. BED IN LOWEST POSITION, CALL LIGHT IN REACH.
--- NOTE | 2020-06-01 09:24 | NUR ---
EFM provider in to see patient. Order given to scan bladder because pt reported difficulty voiding to provider. Bladder scan 50 mL.
--- NOTE | 2020-06-01 17:05 | NUR ---
SUMMARY Pt out of bed to chair two times today. Reluctant to get up to chair for dinner but agreeable after encouragement from staff and daughter in room. Pt A&O x 4. Answers questions. Follows commands. Verbalizes needs. Pleasant and cooperative with care. Pt requires moderate assist with transfers. Requires management of cords and lines as well as verbal cues. Lungs coarse in bases. No crackles noted since IV fluids started. Dry, nonproductive cough. SR per monitor. No events per telemetry. No changes to heart rate noted when pt used albuterol today. BP stable. Pt voids into urinal. Pt sitting up in chair at this time, visiting with daughter. No signs of alcohol withdrawal. Will continue to closely monitor until care handoff and bedside report with oncoming RN.
[2020-06-02 03:44] LABS: BASOPHILS ABSOLUTE AUTO 0.06 K/mm3 (0.00-0.23); BASOPHILS PERCENT AUTO 1 % (0-2); EOSINOPHILS ABSOLUTE AUTO 0.29 K/mm3 (0.00-0.68); EOSINOPHILS PERCENT AUTO 3 % (0-6); Hematocrit 27.6 % (37.0-53.0); IMMATURE GRAN ABSOLUTE AUTO 0.47 K/mm3 (0.00-0.10); IMMATURE GRAN PERCENT AUTO 6 % (0-1); LYMPHOCYTES ABSOLUTE AUTO 1.29 K/mm3 (0.84-5.20); LYMPHOCYTES PERCENT AUTO 15 % (21-46); MONOCYTES ABSOLUTE AUTO 1.13 K/mm3 (0.16-1.47); MONOCYTES PERCENT AUTO 13 % (4-13); Mean Corpuscular HGB 34.1 pg (26.0-34.0); Mean Corpuscular HGB Conc 32.6 g/dL (31.5-36.5); Mean Corpuscular Volume 105 fL (80-100); Mean Platelet Volume 9.3 fL (9.1-12.4); NEUTROPHILS ABSOLUTE AUTO 5.33 K/mm3 (1.96-9.15); NEUTROPHILS PERCENT AUTO 62 % (41-73); NRBC ABSOLUTE 0.02 K/mm3 (0.00-0.02); NRBC Auto 0.2 /100 WBC (0.0-0.2); Platelet Count 247 K/mm3 (150-400); RDW Coefficient Variation 13.2 % (11.7-14.2); RDW Standard Deviation 48.3 fL (35.1-46.3); Red Blood Cell Count 2.64 M/mm3 (4.30-5.90); White Blood Cell Count 8.57 K/mm3 (4.00-11.30)
[2020-06-02 04:05] LABS: Alanine Aminotransfer (ALT/SGP 55 U/L (12-78); Albumin/Globulin Ratio 0.6 (0.8-1.8); Alk Phos 70 U/L (50-136); Anion Gap 4 mmol/L (6-16); Aspartate Aminotrans (AST/SGOT 66 U/L (12-37); Bilirubin, Total 0.9 mg/dL (0.1-1.0); Blood Urea Nitrogen 22 mg/dL (8-24); Bun/Creatinine Ratio 31.8 (12.0-20.0); CO2, Blood 27 mmol/L (21-32); Calcium, Blood 8.3 mg/dL (8.5-10.1); Chloride, Blood 103 mmol/L (98-108); Creatinine, Blood 0.69 mg/dL (0.60-1.20); Globulin, Blood 3.4 g/dL (2.2-4.0); Glomerular Filtration Rate >60 (60-); Glucose, Blood 105 mg/dL (70-99); Magnesium, Blood 1.7 mg/dL (1.6-2.4); Potassium, Blood 4.8 mmol/L (3.5-5.5); Sodium, Blood 134 mmol/L (136-145); Total Protein, Blood 5.4 g/dL (6.4-8.2)
[2020-06-02 04:10] LABS: BAND PERCENT MAN 1 % (0-8); BASOPHILS PERCENT MAN 0 % (0-2); EOSINOPHILS ABSOLUTE MAN 0.08 K/mm3 (0.00-0.68); EOSINOPHILS PERCENT MAN 1 % (0-6); LYMPHOCYTES ABSOLUTE MAN 1.02 K/mm3 (0.84-5.20); LYMPHOCYTES PERCENT MAN 12 % (21-46); METAMYELOCYTE ABSOLUTE MAN 0.17 K/mm3 (0.00-0.00); METAMYELOCYTE PERCENT MAN 2 % (0-0); MONOCYTES ABSOLUTE MAN 0.51 K/mm3 (0.16-1.47); MONOCYTES PERCENT MAN 6 % (4-13); NEUTROPHILS ABSOLUTE MAN 6.77 K/mm3 (1.96-9.15); SEG NEUTROPHILS PERCENT MAN 78 % (41-73); TOTAL CELLS COUNTED 100
--- NOTE | 2020-06-02 04:54 | NUR ---
SHIFT SUMMARY PT CONTINUES TO BE AXO. IN SR. VSS. ON RA. HAS NOT HAD AN EPISODE OF SVT THIS SHIFT. LUNG SOUNDS IN BASES REMAIN COARSE. USING URINAL INDEPENDENTLY. BECOMES TEARY EYED WHEN DISCUSSIN ALCOHOL CESSATION. THIS RN PROVIDED EDUCATION IN THIS AREA. OTHERWISE, PT RESTING IN BED. SOME DIFFICULTY SLEEPING NOTED. WILL CONTINUE TO MONITOR UNTIL SHIFT CHANGE.
[2020-06-02 12:07] LABS: HCV LOG10 6.542 (.); HEPATITIS C QUANTITATION 3480000 IU/mL (.)
--- NOTE | 2020-06-02 17:43 | NUR ---
SHIFT SUMMARY PT A&Ox4; CALM. UNMOTIVATED TO ACTIVTY; PT UP TO CHIAR FOR BREAKFAST AND LUNCH, PT REFUSING TO GET TO CHAIR FOR DINNER. PT EDUCATED ON BENEFIT OF MOVEMENT AND ACTIVITY. PT REPORTS PAIN TO BACK; MEDICATED PER ORDERS. PT SOB WITH ACTIVTY; SPO2 >90% ON RA. PT DENIES NASUEA, DIZZINESS AND LIGHTHEADEDNESS. NO EVENTS NOTED FROM TELE. VSS. NO OTHER ACUTE CHANGES NOTED DURING SHIFT. WILL CONITNUE TO MONITOR UNITL REPORT GIVEN TO ONCOMING RN.
[2020-06-03 04:17] LABS: BASOPHILS ABSOLUTE AUTO 0.06 K/mm3 (0.00-0.23); BASOPHILS PERCENT AUTO 1 % (0-2); EOSINOPHILS ABSOLUTE AUTO 0.25 K/mm3 (0.00-0.68); EOSINOPHILS PERCENT AUTO 3 % (0-6); Hematocrit 27.7 % (37.0-53.0); Hemoglobin 9.1 g/dL (13.5-17.5); IMMATURE GRAN ABSOLUTE AUTO 0.37 K/mm3 (0.00-0.10); IMMATURE GRAN PERCENT AUTO 5 % (0-1); LYMPHOCYTES ABSOLUTE AUTO 1.32 K/mm3 (0.84-5.20); LYMPHOCYTES PERCENT AUTO 16 % (21-46); MONOCYTES ABSOLUTE AUTO 1.23 K/mm3 (0.16-1.47); MONOCYTES PERCENT AUTO 15 % (4-13); Mean Corpuscular HGB 34.6 pg (26.0-34.0); Mean Corpuscular HGB Conc 32.9 g/dL (31.5-36.5); Mean Corpuscular Volume 105 fL (80-100); Mean Platelet Volume 9.5 fL (9.1-12.4); NEUTROPHILS PERCENT AUTO 60 % (41-73); NRBC ABSOLUTE 0.02 K/mm3 (0.00-0.02); NRBC Auto 0.2 /100 WBC (0.0-0.2); Platelet Count 307 K/mm3 (150-400); RDW Coefficient Variation 13.7 % (11.7-14.2); RDW Standard Deviation 50.3 fL (35.1-46.3); Red Blood Cell Count 2.63 M/mm3 (4.30-5.90); White Blood Cell Count 8.13 K/mm3 (4.00-11.30)
[2020-06-03 04:37] LABS: Alanine Aminotransfer (ALT/SGP 60 U/L (12-78); Albumin, Blood 2.1 g/dL (3.4-5.0); Albumin/Globulin Ratio 0.6 (0.8-1.8); Alk Phos 74 U/L (50-136); Anion Gap 4 mmol/L (6-16); Aspartate Aminotrans (AST/SGOT 69 U/L (12-37); Bilirubin, Total 0.9 mg/dL (0.1-1.0); Blood Urea Nitrogen 15 mg/dL (8-24); Bun/Creatinine Ratio 21.6 (12.0-20.0); CO2, Blood 29 mmol/L (21-32); Calcium, Blood 8.6 mg/dL (8.5-10.1); Chloride, Blood 100 mmol/L (98-108); Globulin, Blood 3.7 g/dL (2.2-4.0); Glomerular Filtration Rate >60 (60-); Glucose, Blood 105 mg/dL (70-99); Potassium, Blood 4.8 mmol/L (3.5-5.5); Sodium, Blood 133 mmol/L (136-145); Total Protein, Blood 5.8 g/dL (6.4-8.2)
--- NOTE | 2020-06-03 05:57 | NUR ---
SHIFT SUMMARY PT RESTED WELL THROUGH NIGHT. ALERT AND ORIENTED. SATS >90% ON ROOM AIR. TELE NSR - NO SIGNS OF SVT. VOIDING TO URINAL - UOP >700ML. 1 BM. NO C/O PAIN. VSS. CALL LIGHT WITHIN REACH, BED IN LOWEST POSITION. WILL CONTINUE TO MONITOR.
[2020-06-03] MEDS ORDERED: PANT40 PO (13:27)
[2020-06-03] MEDS ORDERED: METO50ER PO (13:27)
[2020-06-03] MEDS ORDERED: TUMS500 MG PO (13:34)
== END 2020-06-03 15:53 | disposition home health service (06) | DRG 896 ==
LOC: ER 14:37 → MEDS 14:38 → ER 20:28 → MEDS 22:07 → PCU 05-28 18:24 → MEDS 05-28 19:33 → PCU 05-29 15:48 → ENPENDDIS 06-03 12:26 → PCU 06-03 15:53
PROVIDERS: Family Medicine; Internal Medicine; Physician Assistant; ADMIT Internal Medicine
DX: F10.231 Alcohol dependence with withdrawal delirium (principal); I21.A1 Myocardial infarction type 2; E87.2 Acidosis; I47.1 Supraventricular tachycardia; E44.0 Moderate protein-calorie malnutrition; F17.210 Nicotine dependence, cigarettes, uncomplicated; E87.6 Hypokalemia; E03.9 Hypothyroidism, unspecified; J44.9 Chronic obstructive pulmonary disease, unspecified; I10 Essential (primary) hypertension; E83.42 Hypomagnesemia; E86.0 Dehydration; F19.982 Other psychoactive substance use, unspecified with psychoactive substance-induced sleep disorder; M17.12 Unilateral primary osteoarthritis, left knee; B19.20 Unspecified viral hepatitis C without hepatic coma; F41.9 Anxiety disorder, unspecified; R29.6 Repeated falls; Y90.8 Blood alcohol level of 240 mg/100 ml or more
CPT/HCPCS: 36415; 71045; 73560-LT; 80048; 80053; 80074; 80076; 81001; 82550; 82553; 82607; 82746; 82947; 83735; 83880; 84443; 84484; 85025; 87522; 92960; 93005; 93010; 93306; 94640; 94760; 96374; 97110; 97116; 97161; 97165; 97530; 97535; 99285-25; A9270; A9270-GY; G0480; J0153; J1650; J2405; J3411; J3475; J3480; J7042

== ENCOUNTER 2020-06-12 09:27 | Emergency (ER) | payer MEDICARE ==
[~2020-06-12] VITALS: Ht 175.3 cm; Wt 76.7 kg
[~2020-06-12 09:27] MED LIST changes: +CHLO25B PO; +LIDOCAINE1 EAC1 TOP; +LISI20 PO; +MELA3 PO; +METO50ER PO; +PANT40 PO; +SYNTHROID88 MCG PO; +TIOT18 INH; +TRAZ50 PO; +TUMS500 MG PO
[2020-06-12 11:51] LABS: BASOPHILS ABSOLUTE AUTO 0.06 K/mm3 (0.00-0.23); BASOPHILS PERCENT AUTO 1 % (0-2); EOSINOPHILS ABSOLUTE AUTO 0.18 K/mm3 (0.00-0.68); EOSINOPHILS PERCENT AUTO 2 % (0-6); Hematocrit 32.1 % (37.0-53.0); Hemoglobin 10.1 g/dL (13.5-17.5); IMMATURE GRAN ABSOLUTE AUTO 0.06 K/mm3 (0.00-0.10); IMMATURE GRAN PERCENT AUTO 1 % (0-1); LYMPHOCYTES PERCENT AUTO 17 % (21-46); MONOCYTES PERCENT AUTO 9 % (4-13); Mean Corpuscular HGB 33.7 pg (26.0-34.0); Mean Corpuscular HGB Conc 31.5 g/dL (31.5-36.5); Mean Corpuscular Volume 107 fL (80-100); Mean Platelet Volume 8.9 fL (9.1-12.4); NEUTROPHILS ABSOLUTE AUTO 5.76 K/mm3 (1.96-9.15); NEUTROPHILS PERCENT AUTO 71 % (41-73); Platelet Count 490 K/mm3 (150-400); RDW Coefficient Variation 13.6 % (11.7-14.2); RDW Standard Deviation 53.5 fL (35.1-46.3); White Blood Cell Count 8.16 K/mm3 (4.00-11.30)
[2020-06-12 12:05] LABS: Alanine Aminotransfer (ALT/SGP 21 U/L (12-78); Albumin, Blood 2.5 g/dL (3.4-5.0); Albumin/Globulin Ratio 0.6 (0.8-1.8); Alk Phos 68 U/L (50-136); Anion Gap 7 mmol/L (6-16); Aspartate Aminotrans (AST/SGOT 23 U/L (12-37); Bilirubin, Total 0.8 mg/dL (0.1-1.0); Blood Urea Nitrogen 8 mg/dL (8-24); Bun/Creatinine Ratio 10.5 (12.0-20.0); CO2, Blood 27 mmol/L (21-32); Calcium, Blood 8.5 mg/dL (8.5-10.1); Chloride, Blood 107 mmol/L (98-108); Creatinine, Blood 0.76 mg/dL (0.60-1.20); Globulin, Blood 4.1 g/dL (2.2-4.0); Glomerular Filtration Rate >60 (60-); Glucose, Blood 107 mg/dL (70-99); Potassium, Blood 3.3 mmol/L (3.5-5.5); Sodium, Blood 141 mmol/L (136-145); Total Protein, Blood 6.6 g/dL (6.4-8.2); Troponin I 0.038 ng/mL (0.000-0.040)
[2020-06-12 12:06] LABS: International Normalized Ratio 1.03
[2020-06-12] MEDS ORDERED: XARELTO15 MG PO (12:36)
== END 2020-06-12 13:13 | disposition home or self-care (01) ==
LOC: ER 09:27 → CT 09:27
PROVIDERS: Physician Assistant
DX: I26.99 Other pulmonary embolism without acute cor pulmonale (principal); J44.9 Chronic obstructive pulmonary disease, unspecified; E03.9 Hypothyroidism, unspecified; I10 Essential (primary) hypertension; F17.210 Nicotine dependence, cigarettes, uncomplicated; Z88.1 Allergy status to other antibiotic agents; Z88.8 Allergy status to other drugs, medicaments and biological substances; Z79.899 Other long term (current) drug therapy
CPT/HCPCS: 36415; 71260; 80053; 83880; 84484; 85025; 85610; 93005; 93010; 93971; 99284-25; A9270; Q9967

== ENCOUNTER 2020-11-10 16:35 | Observation (INO) | payer MEDICARE ==
[~2020-11-10] VITALS: Ht 175.3 cm; Wt 80.7 kg
[~2020-11-10 16:35] MED LIST changes: +XARELTO15 MG PO
[2020-11-10] MEDS ORDERED: ALBU90OI INH (17:01)
[2020-11-10] MEDS ORDERED: AMLO5 PO (17:02)
[2020-11-10] MEDS ORDERED: ANORO ELLIPTA1 EACH INH (17:02)
[2020-11-10] MEDS ORDERED: ATOR20 PO (17:03)
[2020-11-10] MEDS ORDERED: LISI20 PO (17:03)
[2020-11-10] MEDS ORDERED: Naltrexone HCl50 MG PO (17:05)
[2020-11-10] MEDS ORDERED: TAMS.4ER PO (17:06)
[2020-11-10 17:48] LABS: Source, Urine Clean Catch
[2020-11-10 17:53] LABS: Appearance, Urine Clear (Clear); Bilirubin, Urine Neg (Neg); Blood, Urine 2+ (Neg); Color, Urine Yellow (P-Yellow); Glucose Qualitative, Urine Neg (Neg); Ketones, Urine Neg (Neg); Leukocyte Esterase, Urine Neg (Neg); Nitrite, Urine Neg (Neg); Protein, Urine Neg (Neg); Urobilinogen, Urine 1+ (Normal)
[2020-11-10 18:03] LABS: Bacteria Mod /hpf; Hyaline Casts Rare /lpf (0-2); Squamous Epithelial Cells Not Seen /hpf (Few)
[2020-11-10 18:25] LABS: BASOPHILS ABSOLUTE AUTO 0.03 K/mm3 (0.00-0.23); BASOPHILS PERCENT AUTO 0 % (0-2); EOSINOPHILS PERCENT AUTO 0 % (0-6); Hematocrit 40.1 % (37.0-53.0); Hemoglobin 13.6 g/dL (13.5-17.5); IMMATURE GRAN ABSOLUTE AUTO 0.11 K/mm3 (0.00-0.10); IMMATURE GRAN PERCENT AUTO 1 % (0-1); LYMPHOCYTES ABSOLUTE AUTO 0.82 K/mm3 (0.84-5.20); LYMPHOCYTES PERCENT AUTO 5 % (21-46); MONOCYTES ABSOLUTE AUTO 0.71 K/mm3 (0.16-1.47); MONOCYTES PERCENT AUTO 4 % (4-13); Mean Corpuscular HGB 31.1 pg (26.0-34.0); Mean Corpuscular HGB Conc 33.9 g/dL (31.5-36.5); Mean Corpuscular Volume 92 fL (80-100); Mean Platelet Volume 9.9 fL (9.1-12.4); NEUTROPHILS ABSOLUTE AUTO 16.59 K/mm3 (1.96-9.15); NEUTROPHILS PERCENT AUTO 91 % (41-73); Platelet Count 202 K/mm3 (150-400); RDW Standard Deviation 47.1 fL (35.1-46.3); Red Blood Cell Count 4.37 M/mm3 (4.30-5.90); White Blood Cell Count 18.26 K/mm3 (4.00-11.30)
[2020-11-10 18:45] LABS: Alanine Aminotransfer (ALT/SGP 24 U/L (12-78); Albumin, Blood 3.3 g/dL (3.4-5.0); Albumin/Globulin Ratio 0.8 (0.8-1.8); Alk Phos 58 U/L (50-136); Anion Gap 6 mmol/L (6-16); Aspartate Aminotrans (AST/SGOT 28 U/L (12-37); Bilirubin, Total 1.4 mg/dL (0.1-1.0); Blood Urea Nitrogen 8 mg/dL (8-24); Bun/Creatinine Ratio 9.9 (12.0-20.0); CO2, Blood 27 mmol/L (21-32); Calcium, Blood 8.4 mg/dL (8.5-10.1); Chloride, Blood 103 mmol/L (98-108); Creatinine, Blood 0.81 mg/dL (0.60-1.20); Globulin, Blood 4.3 g/dL (2.2-4.0); Glomerular Filtration Rate >60 (60-); Glucose, Blood 136 mg/dL (70-99); Potassium, Blood 3.2 mmol/L (3.5-5.5); Sodium, Blood 136 mmol/L (136-145); Total Protein, Blood 7.6 g/dL (6.4-8.2); Troponin I 0.038 ng/mL (0.000-0.040)
[2020-11-11 00:54] LABS: SARS-Cov-2 (COVID-19) PCR, MMC NEGATIVE (NEGATIVE)
--- NOTE | 2020-11-11 04:43 | NUR ---
SHIFT SUMMARY NEW ADMIT THIS SHIFT. AAOX4. NPO. DISCOMFORT CONTROLLED WITH 4MG IV MORPHINE Q4H. NO NAUSEA/EMESIS. TELEMETRY IN PLACE, NSR 70s TO 80s SINCE ADMISSION. FEBRILE YESTARDAY EVENING, DECREASED WITH DEEP BREATHING + REMOVAL OF EXCESS BLANKETS. ORIENTED TO ROOM + CALL LIGHT USE. IVF + ABX PER ORDERS. POTASSIUM SUPPLEMENT IV INFUSING SLOWLY FOR COMFORT. PT CURRENTLY SITTING UP IN BED WATCHING TV WITH CALL LIGHT IN REACH.
[2020-11-11 10:24] LABS: BASOPHILS ABSOLUTE AUTO 0.06 K/mm3 (0.00-0.23); BASOPHILS PERCENT AUTO 0 % (0-2); EOSINOPHILS PERCENT AUTO 0 % (0-6); Hematocrit 39.3 % (37.0-53.0); IMMATURE GRAN PERCENT AUTO 1 % (0-1); LYMPHOCYTES ABSOLUTE AUTO 1.07 K/mm3 (0.84-5.20); LYMPHOCYTES PERCENT AUTO 6 % (21-46); MONOCYTES PERCENT AUTO 4 % (4-13); Mean Corpuscular HGB 30.9 pg (26.0-34.0); Mean Corpuscular HGB Conc 33.1 g/dL (31.5-36.5); Mean Corpuscular Volume 93 fL (80-100); Mean Platelet Volume 10.3 fL (9.1-12.4); NEUTROPHILS ABSOLUTE AUTO 17.02 K/mm3 (1.96-9.15); NEUTROPHILS PERCENT AUTO 89 % (41-73); Platelet Count 173 K/mm3 (150-400); RDW Coefficient Variation 14.7 % (11.7-14.2); RDW Standard Deviation 50.7 fL (35.1-46.3); Red Blood Cell Count 4.21 M/mm3 (4.30-5.90); White Blood Cell Count 19.05 K/mm3 (4.00-11.30)
[2020-11-11 10:47] LABS: Alanine Aminotransfer (ALT/SGP 18 U/L (12-78); Albumin, Blood 2.8 g/dL (3.4-5.0); Albumin/Globulin Ratio 0.7 (0.8-1.8); Alk Phos 46 U/L (50-136); Anion Gap 5 mmol/L (6-16); Aspartate Aminotrans (AST/SGOT 29 U/L (12-37); Bilirubin, Total 1.4 mg/dL (0.1-1.0); Blood Urea Nitrogen 11 mg/dL (8-24); Bun/Creatinine Ratio 11.5 (12.0-20.0); CO2, Blood 25 mmol/L (21-32); Calcium, Blood 8.3 mg/dL (8.5-10.1); Chloride, Blood 107 mmol/L (98-108); Creatinine, Blood 0.96 mg/dL (0.60-1.20); Globulin, Blood 4.1 g/dL (2.2-4.0); Glomerular Filtration Rate >60 (60-); Glucose, Blood 113 mg/dL (70-99); Potassium, Blood 4.4 mmol/L (3.5-5.5); Sodium, Blood 137 mmol/L (136-145); Total Protein, Blood 6.9 g/dL (6.4-8.2)
--- NOTE | 2020-11-11 13:52 | NUR ---
ADMIT: 11/10/20 DISCHARGE: DX: Cholecystitis CC: [email or web address] DILLON CALL: RESIDENCE: home CAREGIVER: Bela Lassiter, Roommate, . Cody Celeste, Brother, . DX: HTN, Pulmonary embolism, chronic lung disease, see list DME: Oxygen and equipment CCM: none HOME HEALTH: [facility]- 2020 SUMMARY: Admit: 11/10/20 11/11/20- per chart review with Dr. March, pt is scheduled to have surgery today w/ Dr. King. No plan for d/c at this time. -jacki
--- NOTE | 2020-11-11 19:36 | NUR ---
SHIFT SUMMARY PT HAS BEEN POLITELY WAITING TO GO TO OR. PAINFUL BUT GETS RELIEF FROM IV MEDS AND IS ABLE TO SLEEP FOR SHORT TIMES. ABD TENDER. ABX & IVF INFUSING. URINE CONTINUES TO BE DARK. FEVERS NOTED.
--- NOTE | 2020-11-11 23:08 | NUR ---
PT FROM OR AT 2250. PT SITTING UP IN BED, AWAKE, FOLLOWING INSTRUCTIONS. DENIES PAIN AT THIS TIME, STATES,"I CAN BREATH AND IT DOESN'T HURT". LUNGS CLEAR BUT DECREASED ON 2 LITERS O2 VIA NC. PT ABLE TO C&DB. HEART RATE REGULAR. BP LOW GIVING LR BOLUS PT ANESTHESIA. IV 20G TO RIGHT AC SALINE LOCKED SITE CLEAR. IV 18G TO LEFT AC WITH LR BOLUS INFUSING. BT HYPOACTIVE. ABD DRSG TO RIGHT UPPER QUAD INTACT AND CLEAR. REAL WITH BLOODY DRAINAGE.
--- NOTE | 2020-11-11 23:23 | NUR ---
PAIN PT MED WITH FENTANYL 25 MCQ FOR RIGHT ABD PAIN. PT REPORTS GOOD PAIN CONTROL WITH FENTANYL.
--- NOTE | 2020-11-12 00:09 | NUR ---
PT TRANSFERED TO 208 VIA GURNEY. PT A&O DENIES PAIN OR DISCOMFORT. ONE LITER BOLUS LR INFUSING. VSS. RIGHT UPPER QUAD DRSG INTACT. REAL DRAINING BLOODY FLUID. REPORT CALLED BEFORE TRANSFER
--- NOTE | 2020-11-12 05:19 | NUR ---
SHIFT SUMMARY POD1 LAP SEE, A/O X4, VSS, PT REMAINS NPO AFTER SURGERY, AMBULATING, VOIDING, PAIN TOLERABLE THOUGH PT REPORTS INCREASE IN PAIN WHEN COUGHING AND REQUESTS PAIN MEDICATIONS SOONER THAT WHAT CAN BE GIVEN BY 2 HOURS. NO ACUTE EVENTS THIS SHIFT. CALL LIGHT IN REACH, WILL CTM AND REPORT TO DAY RN.
[2020-11-12 08:51] LABS: BASOPHILS ABSOLUTE AUTO 0.01 K/mm3 (0.00-0.23); BASOPHILS PERCENT AUTO 0 % (0-2); EOSINOPHILS PERCENT AUTO 0 % (0-6); Hematocrit 38.3 % (37.0-53.0); Hemoglobin 12.6 g/dL (13.5-17.5); IMMATURE GRAN ABSOLUTE AUTO 0.06 K/mm3 (0.00-0.10); IMMATURE GRAN PERCENT AUTO 1 % (0-1); LYMPHOCYTES ABSOLUTE AUTO 0.52 K/mm3 (0.84-5.20); LYMPHOCYTES PERCENT AUTO 4 % (21-46); MONOCYTES ABSOLUTE AUTO 0.28 K/mm3 (0.16-1.47); MONOCYTES PERCENT AUTO 2 % (4-13); Mean Corpuscular HGB Conc 32.9 g/dL (31.5-36.5); Mean Corpuscular Volume 94 fL (80-100); Mean Platelet Volume 10.1 fL (9.1-12.4); NEUTROPHILS ABSOLUTE AUTO 12.23 K/mm3 (1.96-9.15); NEUTROPHILS PERCENT AUTO 93 % (41-73); Platelet Count 148 K/mm3 (150-400); RDW Standard Deviation 52.4 fL (35.1-46.3); Red Blood Cell Count 4.06 M/mm3 (4.30-5.90)
[2020-11-12 09:12] LABS: Alanine Aminotransfer (ALT/SGP 22 U/L (12-78); Albumin, Blood 2.5 g/dL (3.4-5.0); Albumin/Globulin Ratio 0.6 (0.8-1.8); Alk Phos 39 U/L (50-136); Anion Gap 6 mmol/L (6-16); Aspartate Aminotrans (AST/SGOT 48 U/L (12-37); Bilirubin, Total 1.1 mg/dL (0.1-1.0); Blood Urea Nitrogen 15 mg/dL (8-24); CO2, Blood 23 mmol/L (21-32); Calcium, Blood 8.1 mg/dL (8.5-10.1); Chloride, Blood 108 mmol/L (98-108); Creatinine, Blood 0.79 mg/dL (0.60-1.20); Globulin, Blood 4.3 g/dL (2.2-4.0); Glomerular Filtration Rate >60 (60-); Glucose, Blood 142 mg/dL (70-99); Magnesium, Blood 2.1 mg/dL (1.6-2.4); Potassium, Blood 4.1 mmol/L (3.5-5.5); Sodium, Blood 137 mmol/L (136-145); Total Protein, Blood 6.8 g/dL (6.4-8.2)
--- NOTE | 2020-11-12 15:46 | NUR ---
11/12/20- per chart review with Dr. March, plan is to d/c pt tomorrow home. Met with pt and he states that prior to him coming into the hospital, he was independent and able to take care of his needs. He has 2 female roommates who cook and clean for him. Pt states that he lives in a single story dwelling. He does have 4 stairs to walk up to get into the home and he has no concerns using them. Pt states that his roommate helps manage his medications and his daughter is able to provide transportation when he is not able to drive himself. Pt does not have a POA and he states that his daughter, Nuha Hayes, is his next of kin. Pt declined to have home health services come into his home at discharge because he has his roommates and they also help with his housekeeping and care needs. Pt states that his pharmacy is [facility] and he will have either his roommate or daughter chicken picker any medications. Pt is eager to go home and his only concern at discharge is pain management. Provided DILLON letter and discussed DILLON call, pt acknowledged understanding. -jacki
--- NOTE | 2020-11-12 19:35 | NUR ---
SHIFT SUMMARY PT HAS DONE WELL TODAY BUT WAS SLEEPY THIS AM GIVEN LATE SURGERY YESTERDAY. WAS UP AMBULATING IN HALLWAY, UP TO CAHIR x 1, SHOWERED. REAL W/ MIN OUTPUT. PAIN WELL MANAGED BUT PREFERS IV MEDS. UNDERSTANDS HE WILL BE ON PO MEDS ONLY FOR D/C.
--- NOTE | 2020-11-13 03:57 | NUR ---
SHIFT SUMMARY POD2 LAP SEE. VSS. PT REPORTS MIN-MOD ABD PAIN. PAIN MANAGED WITH MORPHINE X1 LAST NIGHT AND NORCO X 2 T/O SHIFT. PT USED 3L O2 AT NIGHT (BASELINE HX COPD). PT HAS BEEN RECEIVING BREATHING TX. HE ALSO HAD MELATONIN BEFORE BED. PT TOLERATING PO INTAKE. DENIES NAUSEA AND VOMITING. AMBULATED IN THE HALLWAY X1 LAST NIGHT. ABX ADMINISTERED. VOIDING WELL WITHOUT DIFFICULTY. REAL DRAIN WITH MINIMAL OUTPUT. CALL LIGHT WITHIN REACH. WILL PROVIDE REPORT TO ONCOMING NURSE.
[2020-11-13 04:26] LABS: BASOPHILS ABSOLUTE AUTO 0.01 K/mm3 (0.00-0.23); BASOPHILS PERCENT AUTO 0 % (0-2); EOSINOPHILS PERCENT AUTO 0 % (0-6); Hematocrit 34.2 % (37.0-53.0); Hemoglobin 11.3 g/dL (13.5-17.5); IMMATURE GRAN ABSOLUTE AUTO 0.11 K/mm3 (0.00-0.10); IMMATURE GRAN PERCENT AUTO 1 % (0-1); LYMPHOCYTES ABSOLUTE AUTO 0.67 K/mm3 (0.84-5.20); LYMPHOCYTES PERCENT AUTO 5 % (21-46); MONOCYTES ABSOLUTE AUTO 0.73 K/mm3 (0.16-1.47); MONOCYTES PERCENT AUTO 5 % (4-13); Mean Corpuscular HGB 30.4 pg (26.0-34.0); Mean Corpuscular Volume 92 fL (80-100); Mean Platelet Volume 10.5 fL (9.1-12.4); NEUTROPHILS ABSOLUTE AUTO 13.19 K/mm3 (1.96-9.15); NEUTROPHILS PERCENT AUTO 90 % (41-73); Platelet Count 156 K/mm3 (150-400); RDW Coefficient Variation 14.8 % (11.7-14.2); RDW Standard Deviation 49.6 fL (35.1-46.3); Red Blood Cell Count 3.72 M/mm3 (4.30-5.90); White Blood Cell Count 14.71 K/mm3 (4.00-11.30)
[2020-11-13 04:43] LABS: Anion Gap 4 mmol/L (6-16); Blood Urea Nitrogen 14 mg/dL (8-24); Bun/Creatinine Ratio 19.2 (12.0-20.0); CO2, Blood 26 mmol/L (21-32); Calcium, Blood 8.2 mg/dL (8.5-10.1); Chloride, Blood 109 mmol/L (98-108); Creatinine, Blood 0.73 mg/dL (0.60-1.20); Glomerular Filtration Rate >60 (60-); Glucose, Blood 148 mg/dL (70-99); Potassium, Blood 3.8 mmol/L (3.5-5.5); Sodium, Blood 139 mmol/L (136-145)
--- NOTE | 2020-11-13 10:45 | NUR ---
11/13/20- pt to d/c home today. He will call his daughter to take him home. DILLON was completed yesterday and pt acknowledged understanding. RN aware of d/c and daughter picking him up. -jacki
[2020-11-13] MEDS ORDERED: HYDR1TAB94 PO (12:53)
[2020-11-13] MEDS ORDERED: METR500 PO (12:54)
[2020-11-13] MEDS ORDERED: CIPR500 PO (12:54)
--- NOTE | 2020-11-13 12:54 | NUR ---
ASSISTED PT WITH GETTING DRESSED, JOHANNE WELL, WITH MIN ASSIST FROM RN.
--- NOTE | 2020-11-13 14:16 | NUR ---
DISCHARGE REAL DRAIN REMOVED BY DMITRIY THIS AFTERNOON. PAIN WELL MANAGED. PASSING GAS & EATING/DRINKING WELL. AMBULATING SAFELY. ABD SITES WNL. SCRIPT GIVEN & [facility] ESCORTED OUT VIA W/C.
== END 2020-11-13 14:10 | disposition home or self-care (01) ==
LOC: ER 16:35 → SURS 16:36
PROVIDERS: Emergency Medicine; Family Medicine; Surgery; ADMIT Internal Medicine
PROC: 0FT44ZZ Resection of Gallbladder, Percutaneous Endoscopic Approach (ICD-10-PCS; principal; 2020-11-11 16:15)
DX: K80.00 Calculus of gallbladder with acute cholecystitis without obstruction (principal); K82.A1 Gangrene of gallbladder in cholecystitis; J44.9 Chronic obstructive pulmonary disease, unspecified; I10 Essential (primary) hypertension; E03.9 Hypothyroidism, unspecified; E83.42 Hypomagnesemia; E87.6 Hypokalemia; I47.1 Supraventricular tachycardia; F10.21 Alcohol dependence, in remission; Z88.8 Allergy status to other drugs, medicaments and biological substances; Z87.891 Personal history of nicotine dependence; Z20.822 Contact with and (suspected) exposure to COVID-19
CPT/HCPCS: 36415; 71045; 74174; 76705; 80048; 80053; 81001; 83605; 83690; 83735; 84484; 85025; 85379; 87070; 87075; 87076; 87077; 87086; 87186; 87205; 88304; 93005; 93010; 94640; 94760; 96365; 96367; 96375; 96376; 99285-25; A9270; G0378; J0153; J1100; J1170; J2270; J2370; J2405; J2543; J2704; J3010; J3475; J3480; J7030; J7040; J7120; Q9967; U0004

== ENCOUNTER 2021-07-02 17:17 | Emergency (ER) | payer MEDICARE ==
[~2021-07-02] VITALS: Ht 175.3 cm; Wt 86.2 kg
[~2021-07-02 17:17] MED LIST changes: +AMLO5 PO; +ANORO ELLIPTA1 EACH INH; +ATOR20 PO; +CIPR500 PO; +HYDR1TAB94 PO; +METR500 PO; +Naltrexone HCl50 MG PO; +TAMS.4ER PO
[2021-07-02 17:49] LABS: BASOPHILS ABSOLUTE AUTO 0.02 K/mm3 (0.00-0.23); BASOPHILS PERCENT AUTO 0 % (0-2); EOSINOPHILS PERCENT AUTO 0 % (0-6); Hematocrit 42.9 % (37.0-53.0); Hemoglobin 14.9 g/dL (13.5-17.5); IMMATURE GRAN ABSOLUTE AUTO 0.02 K/mm3 (0.00-0.10); IMMATURE GRAN PERCENT AUTO 0 % (0-1); LYMPHOCYTES ABSOLUTE AUTO 0.94 K/mm3 (0.84-5.20); LYMPHOCYTES PERCENT AUTO 15 % (21-46); MONOCYTES ABSOLUTE AUTO 0.29 K/mm3 (0.16-1.47); MONOCYTES PERCENT AUTO 5 % (4-13); Mean Corpuscular HGB 32.2 pg (26.0-34.0); Mean Corpuscular HGB Conc 34.7 g/dL (31.5-36.5); Mean Corpuscular Volume 93 fL (80-100); NEUTROPHILS ABSOLUTE AUTO 5.14 K/mm3 (1.96-9.15); NEUTROPHILS PERCENT AUTO 80 % (41-73); Platelet Count 182 K/mm3 (150-400); RDW Coefficient Variation 13.4 % (11.7-14.2); RDW Standard Deviation 46.1 fL (35.1-46.3); Red Blood Cell Count 4.63 M/mm3 (4.30-5.90); White Blood Cell Count 6.41 K/mm3 (4.00-11.30)
[2021-07-02 18:13] LABS: Alanine Aminotransfer (ALT/SGP 29 U/L (12-78); Albumin/Globulin Ratio 0.7 (0.8-1.8); Alk Phos 55 U/L (50-136); Anion Gap 7 mmol/L (6-16); Aspartate Aminotrans (AST/SGOT 64 U/L (12-37); Bilirubin, Total 0.6 mg/dL (0.1-1.0); Blood Urea Nitrogen 12 mg/dL (8-24); Bun/Creatinine Ratio 12.8 (12.0-20.0); CO2, Blood 28 mmol/L (21-32); Calcium, Blood 8.4 mg/dL (8.5-10.1); Chloride, Blood 102 mmol/L (98-108); Creatinine, Blood 0.94 mg/dL (0.60-1.20); Globulin, Blood 4.3 g/dL (2.2-4.0); Glomerular Filtration Rate >60 (60-); Glucose, Blood 157 mg/dL (70-99); Potassium, Blood 3.5 mmol/L (3.5-5.5); Sodium, Blood 137 mmol/L (136-145); Total Protein, Blood 7.3 g/dL (6.4-8.2); Troponin I 0.082 ng/mL (0.000-0.040)
[2021-07-02 18:22] LABS: Influenza A, PCR NEGATIVE (NEGATIVE); Influenza B, PCR NEGATIVE (NEGATIVE); Resp Syncytial Virus, PCR NEGATIVE (NEGATIVE)
[2021-07-02 18:28] LABS: SARS-Cov-2 (COVID-19) PCR, MMC POSITIVE (NEGATIVE)
[2021-07-02] MEDS ORDERED: DEXA4 PO (22:06)
[2021-07-02] MEDS ORDERED: Aspirin EC81 MG PO (22:06)
== END 2021-07-02 22:30 | disposition home or self-care (01) ==
LOC: ER 17:17
PROVIDERS: Physician Assistant
DX: U07.1 COVID-19 (principal); J12.82 Pneumonia due to coronavirus disease 2019; I95.9 Hypotension, unspecified; I25.10 Atherosclerotic heart disease of native coronary artery without angina pectoris; I10 Essential (primary) hypertension; J44.9 Chronic obstructive pulmonary disease, unspecified; Z86.711 Personal history of pulmonary embolism; Z87.891 Personal history of nicotine dependence; Z88.8 Allergy status to other drugs, medicaments and biological substances; Z79.899 Other long term (current) drug therapy
CPT/HCPCS: 0241U; 71045; 80053; 83690; 83880; 84484; 85025; 93005; 93010; 99285-25; A9270; J7030

== ENCOUNTER 2022-10-15 07:29 | Day surgery (SDC) | payer MEDICARE, OTHER ==
[~2022-10-15] VITALS: Ht 175.3 cm; Wt 77.0 kg
[~2022-10-15 07:29] MED LIST changes: +Aspirin EC81 MG PO; +DEXA4 PO
--- NOTE | 2022-10-15 08:25 | NUR ---
10/15/22 0825 GLORIA HODGES PT PRESENTED TO PREOP ORSC W SCABBING WOUND LEFT FOREARM. ORSC.RDS
--- NOTE | 2022-10-15 09:47 | NUR ---
10/15/22 0947 DANA CAPONE, STUDENT NURSE-ASSISTING WITH CARE.
[2022-10-15 10:52] VITALS: BP 78/61
== END 2022-10-15 10:50 | disposition home or self-care (01) ==
LOC: ORSCSDS 07:29
PROVIDERS: Student in an Organized Health Care Education/Training Program
PROC: 0DBP8ZX Excision of Rectum, Via Natural or Artificial Opening Endoscopic, Diagnostic (ICD-10-PCS; principal; 2022-10-15 09:00)
PROC: 0DBK8ZX Excision of Ascending Colon, Via Natural or Artificial Opening Endoscopic, Diagnostic (ICD-10-PCS; principal; 2022-10-15 09:00)
PROC: 0DBL8ZX Excision of Transverse Colon, Via Natural or Artificial Opening Endoscopic, Diagnostic (ICD-10-PCS; principal; 2022-10-15 09:00)
DX: Z12.11 Encounter for screening for malignant neoplasm of colon (principal); D12.2 Benign neoplasm of ascending colon; D12.3 Benign neoplasm of transverse colon; K62.1 Rectal polyp; K64.8 Other hemorrhoids; I10 Essential (primary) hypertension; E03.9 Hypothyroidism, unspecified; B18.2 Chronic viral hepatitis C; Z79.899 Other long term (current) drug therapy; Z79.01 Long term (current) use of anticoagulants
CPT/HCPCS: 88305; 93005; 93010; J2704; J7120

== ENCOUNTER 2023-06-10 15:36 | Emergency (ER) | payer MEDICARE, OTHER ==
[~2023-06-10] VITALS: Ht 175.3 cm; Wt 86.2 kg
[2023-06-10 15:44] VITALS: BP 134/99
[2023-06-11] MEDS ORDERED: DONEPEZIL HCL10 M1 PO (10:09)
[2023-06-11] MEDS ORDERED: TRELEGY ELLIPT1 EACH IH (10:09)
[2023-06-11] MEDS ORDERED: ATORVASTATIN CA20 MG PO (10:09)
[2023-06-11] MEDS ORDERED: AMLODIPINE BESYL5 MG PO (10:09)
[2023-06-11] MEDS ORDERED: TRAZ50 PO (10:09)
[2023-06-11] MEDS ORDERED: LISI20 PO (10:10)
== END 2023-06-10 16:18 | disposition left against medical advice (07) ==
LOC: ER 15:36
DX: Z53.21 Procedure and treatment not carried out due to patient leaving prior to being seen by health care provider (principal)
CPT/HCPCS: 99281

== ENCOUNTER 2023-06-11 09:51 | Emergency (ER) | payer MEDICARE, OTHER ==
[~2023-06-11] VITALS: Ht 175.3 cm; Wt 86.2 kg
[2023-06-11] MEDS ORDERED: TRELEGY ELLIPT1 EACH IH (10:09)
[2023-06-11] MEDS ORDERED: TRAZ50 PO (10:09)
[2023-06-11] MEDS ORDERED: AMLODIPINE BESYL5 MG PO (10:09)
[2023-06-11] MEDS ORDERED: ATORVASTATIN CA20 MG PO (10:09)
[2023-06-11] MEDS ORDERED: DONEPEZIL HCL10 M1 PO (10:09)
[2023-06-11] MEDS ORDERED: LISI20 PO (10:10)
[2023-06-11 10:57] LABS: BASOPHILS ABSOLUTE AUTO 0.11 K/mm3 (0.00-0.23); BASOPHILS PERCENT AUTO 1 % (0-2); EOSINOPHILS ABSOLUTE AUTO 0.14 K/mm3 (0.00-0.68); EOSINOPHILS PERCENT AUTO 1 % (0-6); Hematocrit 49.3 % (37.0-53.0); Hemoglobin 16.4 g/dL (13.5-17.5); IMMATURE GRAN ABSOLUTE AUTO 0.04 K/mm3 (0.00-0.10); IMMATURE GRAN PERCENT AUTO 0 % (0-1); LYMPHOCYTES ABSOLUTE AUTO 1.69 K/mm3 (0.84-5.20); LYMPHOCYTES PERCENT AUTO 15 % (21-46); MONOCYTES ABSOLUTE AUTO 1.01 K/mm3 (0.16-1.47); MONOCYTES PERCENT AUTO 9 % (4-13); Mean Corpuscular HGB 32.1 pg (26.0-34.0); Mean Corpuscular HGB Conc 33.3 g/dL (31.5-36.5); Mean Corpuscular Volume 97 fL (80-100); Mean Platelet Volume 9.5 fL (9.1-12.4); NEUTROPHILS ABSOLUTE AUTO 8.52 K/mm3 (1.96-9.15); NEUTROPHILS PERCENT AUTO 74 % (41-73); Platelet Count 299 K/mm3 (150-400); RDW Coefficient Variation 13.6 % (11.7-14.2); RDW Standard Deviation 48.7 fL (35.1-46.3); Red Blood Cell Count 5.11 M/mm3 (4.30-5.90); White Blood Cell Count 11.51 K/mm3 (4.00-11.30)
[2023-06-11 11:12] LABS: Albumin, Blood 4.1 g/dL (3.4-5.0); Albumin/Globulin Ratio 0.8 (0.8-1.8); Bun/Creatinine Ratio 22.4 (12.0-20.0); Calcium, Blood 9.7 mg/dL (8.5-10.1); Creatinine, Blood 0.89 mg/dL (0.60-1.20); Globulin, Blood 4.9 g/dL (2.2-4.0); Magnesium, Blood 2.4 mg/dL (1.6-2.4); Potassium, Blood 3.6 mmol/L (3.5-5.5)
[2023-06-11 14:52] VITALS: BP 135/74
== END 2023-06-11 16:41 | disposition short-term general hospital (02) ==
LOC: ER 09:51
PROVIDERS: Emergency Medicine
DX: T18.128A Food in esophagus causing other injury, initial encounter (principal); I47.9 Paroxysmal tachycardia, unspecified; I10 Essential (primary) hypertension; J44.9 Chronic obstructive pulmonary disease, unspecified; E78.00 Pure hypercholesterolemia, unspecified; E03.9 Hypothyroidism, unspecified; Z86.711 Personal history of pulmonary embolism; G47.00 Insomnia, unspecified; Z87.891 Personal history of nicotine dependence; Z79.51 Long term (current) use of inhaled steroids; Z79.899 Other long term (current) drug therapy; Z88.8 Allergy status to other drugs, medicaments and biological substances; X58.XXXA Exposure to other specified factors, initial encounter
CPT/HCPCS: 71045; 80053; 83735; 84484; 85025; 93005; 93010; 96361; 96374; 99284-25; J1610; J7030